=== PATIENT | male | born 1970 ===

== ENCOUNTER 2023-03-25 06:00 | Day surgery (SDC) | payer OTHER ==
[~2023-03-25 06:00] MED LIST: FOLIC ACID20 MG PO; PLAQUENIL PO
[2023-03-25] MEDS ORDERED: OXYC1TAB9 PO (13:27)
== END 2023-03-25 15:00 | disposition home or self-care (01) ==
LOC: CIR.AMB 06:00
PROVIDERS: ATTEND Surgery
DX: K64.2 Third degree hemorrhoids (principal); K64.4 Residual hemorrhoidal skin tags; K64.8 Other hemorrhoids; K62.5 Hemorrhage of anus and rectum; I10 Essential (primary) hypertension; Z20.822 Contact with and (suspected) exposure to COVID-19